=== PATIENT | male | born 1990 | race Caucasian/White ===

== ENCOUNTER 2018-04-27 05:59 | Emergency (ER) | payer OTHER ==
[2018-04-27 06:21] VITALS: O2SAT 100
[2018-04-27] MEDS ORDERED: TORAdol 30 mg Injection IM ONE (06:40)
[2018-04-27] MEDS ORDERED: Phenergan 25 MG INJ IM ONE (06:41)
--- NOTE | 2018-04-27 06:41 | ERPHSYRPT ---
- History of Present Illness Time Seen by Provider: 04/27/18 06:33 Source: patient Exam Limitations: no limitations Patient Subjective Stated Complaint: pt co migraine headache since approx 1999 last pm; started in base of neck and head radiating up into back of head; denies any photophobia but states this am he is having hot flashes and slightly nauseated; pt has h/o migraines but states he has not had one in approx 14-15 years and this does not feel similar. Triage Nursing Assessment: pt a&o x3; skin p, w, & d; ambulated to room per self ; no other distress noted. Physician History: The patient is a 27-year-old male complaining of a headache that began yesterday evening at 8 PM and has worsened throughout the night. The pain began at the base of his skull at the back of his head and he progresses up and over to near his forehead. He is slightly nauseated now. He denies numbness or tingling. Light doesn't bother him. As a teenager he had migraine headaches but has not had any for several years. 2 days ago while at work he stood up and hit the top of his head on a pipe. He did not lose consciousness. His past medical history is significant for migraine headaches. Timing/Duration: yesterday, hour(s) (10), gradual onset, worse Quality: sharpness Head Pain Location: temporal, occipital, parietal Severity of Pain-Max: severe Severity of Pain-Current: severe Recent Head Trauma: head trauma > 24 hrs ago Associated Symptoms: nausea/vomiting, sweating, No seizures, No stiff neck, No trouble walking, No vision changes, No visual disturbance, No weakness Previous symptoms: different symptoms Allergies/Adverse Reactions: No Known Drug Allergies Allergy (Verified 04/27/18 06:21) Home Medications: No Reportable Medications [No Reported Medications] 04/27/18 [History] Hx Tetanus, Diphtheria Vaccination/Date Given: Yes Hx Influenza Vaccination/Date Given: No Hx Pneumococcal Vaccination/Date Given: No Immunizations Up to Date: No - Review of Systems Constitutional: No Fever, No Chills Eyes: No Symptoms Ears, Nose, & Throat: No Symptoms Respiratory: No Cough, No Dyspnea Cardiac: No Chest Pain, No Edema, No Syncope Abdominal/Gastrointestinal: Nausea, No Vomiting, No Diarrhea Genitourinary Symptoms: No Dysuria Musculoskeletal: No Back Pain, No Neck Pain Skin: No Rash Neurological: Headache, No Dizziness, No Focal Weakness, No Parasthesia, No Sensory Changes, No Speech Changes Psychological: No Symptoms Endocrine: No Symptoms Hematologic/Lymphatic: No Symptoms Immunological/Allergic: No Symptoms All Other Systems: Reviewed and Negative - Past Medical History Pertinent Past Medical History: No Endocrine Medical History: Hypoglycemia - Past Surgical History Past Surgical History: Yes Musculoskeletal: Orthopedic Surgery Other Surgical History: HAND SURGERY - Social History Smoking Status: Never smoker Exposure to second hand smoke: Yes Alcohol Use: Socially Drug Use: none Patient Lives Alone: Yes Significant Family History: no pertinent family hx - Nursing Vital Signs Nursing Vital Signs: Initial Vital Signs Temperature 99 F 04/27/18 06:12 Pulse Rate 76 04/27/18 06:12 Respiratory Rate 18 04/27/18 06:12 Blood Pressure 131/94 04/27/18 06:12 O2 Sat by Pulse Oximetry 100 04/27/18 06:12 Pain Scale Pain Intensity 8 - Physical Exam General Appearance: moderate distress Eye Exam: PERRL/EOMI, No photophobia Ears, Nose, Throat Exam: normal ENT inspection, moist mucous membranes Neck Exam: normal inspection, supple, full range of motion, No meningismus, No Kernig's Respiratory Exam: normal breath sounds, lungs clear Cardiovascular Exam: regular rate/rhythm, normal heart sounds Gastrointestinal/Abdominal Exam: soft, No tenderness, No distention Back Exam: normal inspection, normal range of motion Extremity Exam: normal inspection Mental Status Exam: alert, oriented x 3, cooperative customer relations advisor Exam: normal speech, PERRL, No facial droop Coordination/Gait Exam: normal finger to nose, normal gait, normal cerebellar function Motor/Sensory Exam: no motor deficit, no sensory deficit, no pronator drift Skin Exam: normal color, warm, dry, No rash SpO2 Interpretation: normal SpO2: 100 Oxygen Delivery: Room Air - Progress Progress: improved Counseled pt/family regarding: diagnosis - Departure Time of Disposition: 06:48 Departure Disposition: Home Clinical Impression: Headache Condition: Stable Critical Care Time: No Additional Instructions: Your having headache that we have treated with Toradol 60 mg and Phenergan 50 mg by IM in the ER. Please go home and rest. You may take Tylenol as needed. Follow-up with your primary medical doctor as needed.
[2018-04-27] MEDS ORDERED: Phenergan 25 MG INJ ONE (06:46)
[2018-04-27] MEDS ORDERED: TORAdol 30 mg Injection ONE (06:46)
[2018-04-27 07:05] VITALS: BP 138/88; PULSE 83
== END 2018-04-27 07:04 | disposition home or self-care (01) ==
LOC: ED 05:59
DX: R51 Headache (principal)
CPT/HCPCS: 96372; 99284; J1885; J2550